=== PATIENT | female | born 1965 | race African-American/Black ===

== ENCOUNTER 2020-05-08 16:13 | Emergency (ER) | payer SELFPAY ==
[2020-05-08 16:19] VITALS: BP 174/74; PULSE 87; RESP 16; TEMP 36.3; O2SAT 97
--- NOTE | 2020-05-08 16:30 | DI.RAD_ITS ---
EXAM: XR KNEE RT 3V AP,LAT,SHABNAM CLINICAL HISTORY: Fall, Swelling, R/O fracture,effusion. TECHNIQUE: 2D digital imaging was performed. COMPARISON: No exams were available for comparison FINDINGS: There is mild prepatellar swelling. No evidence of patellar nor other fractures. Small joint effusi on. There are moderate degenerative changes noted in the lateral and patellofemoral compartments. M ild degenerative change in the medial compartment. No osseous lesions. Bone density is age-appropri ate IMPRESSION: Prepatellar soft tissue swelling. Degenerative changes. No fractures evident. DATA REPOSITORY: RADIATION DOSE DELIVERED:
--- NOTE | 2020-05-08 16:40 | ED.GENADUL_ITS ---
Discharge Plan Disposition Patient Disposition: HOME Condition: Stable Discharge Details Clinical Impression: Right knee sprain Primary Care Provider: [facility] Provider: Tamar Breaux Home Meds and New Rx's Prescriptions: No Action amlodipine 10 mg Tablet 10 mg PO DAILY RF: 0 hydrochlorothiazide 25 mg Tablet 25 mg PO DAILY RF: 0 Discharge Instructions Instructions: Knee Sprain (ED) Additional Instructions: A hinged knee brace was recommended today you are fitted with a Daron bandage. X- rays show no acute fracture there is some mild mild prepatellar soft tissue swelling. And some mild tricompartmental osteoarthritis. Rest, ice, compression, elevation Follow up with primary care provider in 3-5 days. Return to ED sooner if any worsening or concerns. Increase oral fluids. Please take Tylenol or Ibuprofen with food every 4-6 hours as needed for pain and swelling. Stand Alone Forms: Work Release Discharge Data Discharge Date/Time-TO BE ENTERED AT DEPARTURE: 05/08/20 17:56 Medical Decision Making 54-year-old -Citizen Of [place] female presents to the ED with chief complaint of right knee pain. Patient states that she was walking on the ice yesterday and slipped landing onto her right knee. She is complaining of mid anterior joint pain and lateral swelling. Right knee is notably more swollen than her left knee at this time. She has no other injuries or complaints at this time she did take an Aleve approximately 1 PM. She does have a past medical history of high blood pressure. She is not a smoker. She is alert oriented no evidence of head trauma at this time. Distal CMS is intact. Imaging protocol: XR Right knee. Views: 3 views. COMPARISON: No relevant prior studies available. FINDINGS: 54-year-old female presenting status post trauma. Three views of the right knee are provided for further evaluation. Normal anatomic alignment and bone density. There is mild tricompartmental osteoarthritis, as manifested predominantly by decreased joint space and marginal osteophyte formation. No acutely displaced fracture or dislocation. No aggressive osseous lesions. No significant joint effusions. Mild prepatellar soft tissue swelling is suggested. IMPRESSION: Mild prepatellar soft tissue swelling without acute skeletal pathology Patient offered hinged knee brace which she declined. She did not bring her own Daron wrap which was placed prior to discharge. She also declined crutches at this time. Instructed on rest ice compression elevation and staying off as much as possible for the last next couple of days. Patient verbalized understanding of home care and discuss strict return instructions. Patient was h emodynamically stable throughout stay. This text was generated using [employer] dictation system, please disregard any oddities of phrase or misspellings. HPI General Mode of arrival: ambulatory . Date/Time Provider Initiated Documentation: 05/08/20 16:23 . Limitations to Documentation: no limitations . Information obtained by: patient . HPI Narrative: 54-year-old -Citizen Of [place] female presents to the ED with chief complaint of right knee pain. Patient states that she was walking on the ice yesterday and slipped landing onto her right knee. She is complaining of mid anterior joint pain and lateral swelling. Right knee is notably more swollen than her left knee at this time. She has no other injuries or complaints at this time she did take an Aleve approximately 1 PM. She does have a past medical history of high blood pressure. She is not a smoker. She is alert oriented no evidence of head trauma at this time. Distal CMS is intact. Related Data Home Medications Medication Instructions Recorded Confirmed amlodipine 10 mg PO DAILY 05/08/20 05/08/20 hydrochlorothiazide 25 mg PO DAILY 05/08/20 05/08/20 Allergies Allergy/AdvReac Type Severity Reaction Status Date / Time No Known Allergies Allergy Unverified 05/08/20 16:23 General Stated Complaint: Orthopedic MIKEL: 4 Review of Systems All systems reviewed & are unremarkable except as noted in HPI and below Musculoskeletal Musculoskeletal: Reports arthralgias (Left lateral knee, hx of meniscus repair) [facility] Social History Smoking/Tobacco Use Status: Never Smoking risk assessment performed?: Yes Substance use type: does not use Do you feel safe at home: Yes Do you feel safe in your relationship?: Yes Exam Extrem Right lower extremity: knee Details: abnormal to inspection (Swelling laterall and pre-patellar) Details: with a suprapatellar bulge; knee not obviously dislocated and patella not obviously dislocated, tenderness Location: of the patella, of the lateral joint line and of the pre-patellar area and swelling; no abrasions, no lacerations, no penetrating wound and no unusual warmth Course Vital Signs Vital signs: Vital Signs Temperature 36.3 C L 05/08/20 16:19 Pulse 87 05/08/20 16:19 Respiratory Rate 16 05/08/20 16:19 Blood Pressure 174/74 H 05/08/20 16:19 Pulse Oximetry 97 05/08/20 16:19 Temperature 36.3 C L 05/08/20 16:19 Temperature Source Skin 05/08/20 16:19 Pulse 87 05/08/20 16:19 Respiratory Rate 16 05/08/20 16:19 Respiratory Effort 05/08/20 16:19 Blood Pressure 174/74 H 05/08/20 16:19 Blood Pressure Position Sitting 05/08/20 16:19 Pulse Oximetry 97 05/08/20 16:19 Oxygen Delivery Method Room Air 05/08/20 16:19 Oxygen Flow Rate 0 05/08/20 16:19 Pain Level 5 05/08/20 16:19
[2020-05-08] MEDS: Ibuprofen 600 MG TAB PO (16:55)
--- NOTE | 2020-05-08 17:13 | DI.VRAD_ITS ---
PROCEDURE INFORMATION: Exam: XR Right Knee Exam date and time: 05/08/2020 4:40 PM Age: 54 years old Clinical indication: Pain; Right; Patient HX: Blunt trauma to knee. Fall today. TECHNIQUE: Imaging protocol: XR Right knee. Views: 3 views. COMPARISON: No relevant prior studies available. FINDINGS: 54-year-old female presenting status post trauma. Three views of the right knee are provided for further evaluation. Normal anatomic alignment and bone density. There is mild tricompartmental osteoarthritis, as manifested predominantly by decreased joint space and marginal osteophyte formation. No acutely displaced fracture or dislocation. No aggressive osseous lesions. No significant joint effusions. Mild prepatellar soft tissue swelling is suggested. IMPRESSION: Mild prepatellar soft tissue swelling without acute skeletal pathology. Dictated and Authenticated by: Stefan Cueto MD. Ordering:KENNETH Boyle MD
== END 2020-05-08 17:56 | disposition home or self-care (01) ==
PROVIDERS: Emergency Provider Registered Nurse Emergency
DX: S83.8X1A Sprain of other specified parts of right knee, initial encounter (principal); W00.0XXA Fall on same level due to ice and snow, initial encounter; M25.461 Effusion, right knee
CPT/HCPCS: 73562; 99283